=== PATIENT | female | born 1950 | race Caucasian/White ===

== ENCOUNTER 2017-05-05 07:41 | Day surgery (SDC) | payer OTHER ==
[~2017-05-05 07:41] MED LIST: ALLEGRA180 PO; CALCIUM; CENTRUM PO; CENTRUM TAB1 TAB PO; CIP5 PO; CLEOCIN300 MG PO; CO Q-10100 MG PO; COQ 10; CRESTOR10 PO; FISH-EPA1000 MG PO; FLAG500TAB PO; GARLIFE PO; HYDROCHLOROT25 MG PO; JANTOVEN7.5 MG PO; LIOR10 PO; LORTAB10 PO; MAG6464 MG PO; MICARDIS40 PO; MICARDIS80 PO; MILK THISTLE; MOBIC15 MG PO; MULTIPLE VIT PO; NIACIN50T PO; NORCO1 TA1 PO; NORV5 PO; OS500+D PO; POTASSIUM95 MG PO; PRAVACHOL40 MG PO; PRILOSEC40 MG PO; PROTONIX PO; PROVHFA INH; SUPER B COMP PO; VITAMIN D; VITAMIN D400 UNI1 PO; WARFARIN; XARELTO20 MG PO
== END 2017-05-05 18:48 | disposition home or self-care (01) ==
LOC: SDC 07:41
PROVIDERS: Orthopaedic Surgery
PROC: 3E0R33Z Introduction of Anti-inflammatory into Spinal Canal, Percutaneous Approach (ICD-10-PCS; 2017-05-05)
PROC: B01BYZZ Fluoroscopy of Spinal Cord using Other Contrast (ICD-10-PCS; 2017-05-05)
PROC: 3E0R3BZ Introduction of Anesthetic Agent into Spinal Canal, Percutaneous Approach (ICD-10-PCS; principal; 2017-05-05 07:00)
DX: M54.17 Radiculopathy, lumbosacral region (principal); Z79.899 Other long term (current) drug therapy; Z88.0 Allergy status to penicillin; Z91.041 Radiographic dye allergy status; Z79.891 Long term (current) use of opiate analgesic; Z90.710 Acquired absence of both cervix and uterus; Z90.49 Acquired absence of other specified parts of digestive tract; Z98.890 Other specified postprocedural states
CPT/HCPCS: J1040; J2250; J3010; Q9967